=== PATIENT | female | born 1980 | race Caucasian/White ===

== ENCOUNTER 2016-09-28 03:20 | Emergency (ER) | payer SELFPAY ==
[2016-09-28] MEDS ORDERED: CIPROFLOXACIN/DEXAMETH OTIC 7.5ML BOTTLE ONE (03:39)
[2016-09-28] MEDS ORDERED: CIPROFLOXACIN/DEXAMETH OTIC 7.5ML BOTTLE LEFT_EAR ONE (03:40)
[2016-09-28] MEDS ORDERED: predniSONE 20 MG TAB PO ONE (03:41)
[2016-09-28 03:45] VITALS: BP 135/82; TEMP 97.5; O2SAT 98
--- NOTE | 2016-09-28 03:45 | ED.PDOC ---
History of Present Illness - General Chief Complaint: ENT Problem Stated Complaint: left ear pain Time Seen by Provider: 09/28/16 03:35 Source: patient Exam Limitations: no limitations - History of Present Illness Initial Comments: The patient is a 35-year-old female presenting to the emergency room secondary to left ear pain. She has been having some discomfort for the last week but it got significantly worse over the last 12 hours. The ear canal is slightly swollen shut. No significant drainage. No mastoid process tenderness to palpation. Timing/Duration: 1 week Severity: moderate Improving Factors: nothing Worsening Factors: nothing Associated Symptoms: denies symptoms Allergies/Adverse Reactions: Allergies NO KNOWN ALLERGY Allergy (Verified 03/25/12 15:11) Home Medications: Ambulatory Orders Ciprofloxacin-Dexamethasone [Ciprodex 0.3-0.1 %] 4 drop LEFT_EAR BID 7 Days 11/07 Review of Systems - Review of Systems Constitutional: States: no symptoms reported EENTM: States: see HPI Respiratory: States: no symptoms reported Cardiology: States: no symptoms reported Gastrointestinal/Abdominal: States: no symptoms reported Genitourinary: States: no symptoms reported Musculoskeletal: States: no symptoms reported Skin: States: no symptoms reported Neurological: States: no symptoms reported Endocrine: States: no symptoms reported All other Systems: No Change from Baseline Past Medical History (General) - Patient Medical History Hx Diabetes: No - Female History Hx Last Menstrual Period: 06/14/11 Expected Date of Delivery:: 03/20/12 Physical Exam - Physical Exam General Appearance: Alert, Comfortable, No apparent distress Eye Exam: bilateral normal Ears, Nose, Throat: hearing grossly normal, normal pharynx, other - left ear canal with significant swelling Neck: full range of motion, supple Respiratory: no respiratory distress, no accessory muscle use Cardiovascular/Chest: normal peripheral pulses, no edema Peripheral Pulses: dorsalis pedis,right: 2+, dorsalis pedis,left: 2+ Rectal Exam: deferred Back Exam: normal inspection Extremity: normal range of motion, normal inspection, no pedal edema, normal capillary refill 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 Ciprodex was started here. Will be continued for 7 days. ER warnings were given for any worsening. She needs to follow up with her primary care doctor. Departure - Departure Clinical Impression: Otitis externa Qualifiers: Otitis externa type: unspecified type Laterality: left Chronicity: acute Qualified Code(s): H60.502 - Unspecified acute noninfective otitis externa, left ear Disposition: Discharge to Home or Self Care Condition: Fair Departure Forms: ED Discharge - Pt. Copy, Patient Portal Self Enrollment Instructions: DI for Otitis Externa Diet: regular diet Activity: increase activity as tolerated Referrals: Ar Tellez MD [Primary Care Provider] - 1-2 Weeks Prescriptions: Ciprofloxacin-Dexamethasone [Ciprodex 0.3-0.1 %] 4 drop LEFT_EAR BID 7 Days Home Medications: Ambulatory Orders Ciprofloxacin-Dexamethasone [Ciprodex 0.3-0.1 %] 4 drop LEFT_EAR BID 7 Days 11/07 Additional Instructions: the patient is a 35-year-old female presenting with acute otitis externa on the left. Ciprodex was started here. Will be continued for 7 days. ER warnings were given for any worsening. She needs to follow up with her primary care doctor.
== END 2016-09-28 04:02 | disposition home or self-care (01) ==
LOC: ER 03:20
DX: H60.502 Unspecified acute noninfective otitis externa, left ear (principal)

== ENCOUNTER 2018-05-28 05:54 | Emergency (ER) | payer SELFPAY ==
[2018-05-28] MEDS ORDERED: KETOROLAC TROMETHAMINE INJ 30 MG/ML VIAL IM ONE (06:27)
[2018-05-28] MEDS ORDERED: MORPHINE SULFATE INJ 10 MG/ML VIAL IM ONE (06:27)
[2018-05-28] MEDS ORDERED: predniSONE 20 MG TAB PO ONE (06:28)
[2018-05-28] MEDS ORDERED: diazePAM 2 MG TAB PO ONE (06:28)
[2018-05-28 06:36] VITALS: TEMP 96.7
--- NOTE | 2018-05-28 06:44 | ED.PDOC ---
History of Present Illness - General Source: patient Exam Limitations: no limitations - History of Present Illness Initial Comments: The patient is a 37-year-old female presenting to emergency room secondary tosevere low back pain in the region of L4-S1 primarily on the left. Pain started low-grade yesterday became very severe when she dropped something and bent over to pick it up this morning. She has been unable to straighten herself since then. Pain is rated a 10 out of 10. The patient apparently has had a history of low magnesium in the past but has not had any checks. No known recent trauma to the back. The patient is obese. She does look unhealthy at this point. Timing/Duration: unsure Severity: severe Improving Factors: immobilization Worsening Factors: movement Associated Symptoms: denies symptoms <Ayush Oneill - Last Filed: 05/28/18 06:59> <Devin Hou - Last Filed: 05/28/18 10:29> - General Chief Complaint: Back Pain or Injury Stated Complaint: lower back [pain Time Seen by Provider: 05/28/18 06:24 - History of Present Illness Allergies/Adverse Reactions: Allergies NO KNOWN ALLERGY Allergy (Verified 05/28/18 06:30) Home Medications: Ambulatory Orders Ciprofloxacin-Dexamethasone [Ciprodex 0.3-0.1 %] 4 drop LEFT_EAR BID 7 Days brett 09/28/16 Acetamin W/Cod #3 Tab [Tylenol w/CODEINE #3] 1 ea PO Q6HR PRN #40 tab 05/28/18 Methocarbamol [Robaxin] 750 mg PO TID #30 tab 05/28/18 Methylprednisolone [Medrol Dose Kenneth] 4 mg PO DAILY 6 Days #21 tab 05/28/18 Review of Systems - Review of Systems Constitutional: States: no symptoms reported EENTM: States: no symptoms reported Respiratory: States: no symptoms reported Cardiology: States: no symptoms reported Gastrointestinal/Abdominal: States: no symptoms reported Genitourinary: States: no symptoms reported Musculoskeletal: States: back pain, muscle stiffness Skin: States: no symptoms reported Neurological: States: no symptoms reported Endocrine: States: no symptoms reported All other Systems: No Change from Baseline <Ayush Oneill - Last Filed: 05/28/18 06:59> Past Medical History (General) - Patient Medical History Hx Seizures: No Hx Stroke: No Hx Dementia: No Hx Asthma: No Hx of COPD: No Hx Cardiac Disorders: No Hx Congestive Heart Failure: No Hx Pacemaker: No Hx Hypertension: No Hx Thyroid Disease: No Hx Diabetes: No Hx Gastroesophageal Reflux: No Hx Renal Disease: No Hx Cancer: No Hx of HIV: No Hx Hepatitis C: No Hx MRSA: No Surgical History: tonsillectomy - Vaccination History Hx Tetanus, Diphtheria Vaccination: No Hx Influenza Vaccination: No - Social History Hx Tobacco Use: Yes Hx Alcohol Use: Yes - occasional - Female History Patient is a Female of Child Bearing Age (10 -59 yrs old): Yes Hx Last Menstrual Period: 06/14/11 Patient : No Expected Date of Delivery:: 03/20/12 <Ayush Oneill - Last Filed: 05/28/18 06:59> Family Medical History - Family History Mother Family History: Unknown Living Status: Unknown <Ayush Oneill - Last Filed: 05/28/18 06:59> Physical Exam - Physical Exam General Appearance: Alert, Obvious distress, Ill Appearing, Unkempt Eye Exam: bilateral normal Ears, Nose, Throat: hearing grossly normal, normal ENT inspection, normal pharynx Neck: full range of motion, supple Respiratory: lungs clear, normal breath sounds, no respiratory distress, no accessory muscle use Cardiovascular/Chest: normal peripheral pulses, regular rate, rhythm, no edema Peripheral Pulses: radial,right: 2+, radial,left: 2+, dorsalis pedis,right: 2+, dorsalis pedis,left: 2+ Gastrointestinal/Abdominal: non tender - obese, soft Rectal Exam: deferred Back Exam: no vertebral tenderness, muscle spasm, other - see history of present illness Extremity: non-tender, normal inspection, no pedal edema, no calf tenderness, normal capillary refill, other - testing of range of motion of lower extremities limited due to severe back pain at this point. 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 Skin Exam: other - skin color is fairly morgan Comments: Vital Signs - 24 hr 05/28/18 06:00 Temperature 96.7 F L Pulse Rate [ 72 monitor] Respiratory 20 Rate Blood Pressure 104/76 [Right Arm] O2 Sat by Pulse 99 Oximetry <Ayush Oneill - Last Filed: 05/28/18 06:59> Progress - Progress Progress: 05/28/18 06:46 the patient is a 37-year-old female presenting to emergency room secondary to gradual onset with abrupt worsening of low back pain primarily to the left lower back with severe muscle spasm starting a couple of days ago. The patient is receiving x-rays of this. she is also receiving a dose of Toradol, prednisone, low-dose Valium and a small dose of IM morphine to try and break the muscle spasm that is currently immobilizing her. This may simply be degenerative disease of the lower lumbar spine that has progressed due to increased weight bearing. However she does have a significant history of hypo magnesemia and given her current clinical appearance additional laboratory work has been order to help rule out other possibly contributing pathology. dr celaya to be assuming care and continue the workup. <Ayush Oneill - Last Filed: 05/28/18 06:59> - Results/Orders Results/Orders: Laboratory Tests 05/28/18 05/28/18 05/28/18 06:30 06:45 06:45 WBC 8.5 RBC 4.66 Hgb 14.4 Hct 42.7 MCV 91.6 MCH 30.8 MCHC 33.6 RDW 13.8 Plt Count 211 MPV 9.4 Absolute Neuts (auto) 5.90 Absolute Lymphs (auto) 2.10 Absolute Monos (auto) 0.40 Absolute Eos (auto) 0.10 Absolute Basos (auto) 0.00 Neutrophils % 69.6 Lymphocytes % 25.1 Monocytes % 4.2 Eosinophils % 1.0 Basophils % 0.1 Sodium 136 Potassium 4.3 Chloride 105 Carbon Dioxide 23 Anion Gap 12.3 BUN 10 Creatinine 0.74 BUN/Creatinine Ratio 13.5 Random Glucose 92 Serum Osmolality 270.6 L Calcium 9.2 Magnesium 1.8 Total Bilirubin 0.8 AST 16 ALT 12 Alkaline Phosphatase 28 L Creatine Kinase 65 CK-MB (CK-2) 1.4 CK-MB (CK-2) % 2.15 Troponin I < 0.02 Serum Total Protein 6.8 Albumin 3.9 Globulin 2.9 Albumin/Globulin Ratio 1.3 TSH 2.00 Serum HCG, Qual Negative Urine Color Urine Appearance Urine pH Ur Specific [place] Urine Protein Urine Glucose (UA) Urine Ketones Urine Blood Urine Nitrite Urine Bilirubin Urine Urobilinogen Ur Leukocyte Esterase Urine RBC Urine WBC Ur Epithelial Cells Amorphous Sediment Urine Bacteria 05/28/18 06:57 WBC RBC Hgb Hct MCV MCH MCHC RDW Plt Count MPV Absolute Neuts (auto) Absolute Lymphs (auto) Absolute Monos (auto) Absolute Eos (auto) Absolute Basos (auto) Neutrophils % Lymphocytes % Monocytes % Eosinophils % Basophils % Sodium Potassium Chloride Carbon Dioxide Anion Gap BUN Creatinine BUN/Creatinine Ratio Random Glucose Serum Osmolality Calcium Magnesium Total Bilirubin AST ALT Alkaline Phosphatase Creatine Kinase CK-MB (CK-2) CK-MB (CK-2) % Troponin I Serum Total Protein Albumin Globulin Albumin/Globulin Ratio TSH Serum HCG, Qual Urine Color Yellow Urine Appearance Cloudy Urine pH 6.5 Ur Specific [place] 1.025 Urine Protein Negative Urine Glucose (UA) Negative Urine Ketones Negative Urine Blood Negative Urine Nitrite Negative Urine Bilirubin Negative Urine Urobilinogen 0.2 Ur Leukocyte Esterase Negative Urine RBC 0 Urine WBC 0 Ur Epithelial Cells 1-3 Amorphous Sediment 2+ Urine Bacteria 0 7.10 AM PT EXAMINED STILL IN PAIN HISTORY REVIEWED EXAM IN MODERATE PAIN AT THIS TIME PAIN IS WORSE WITH MOVEMENTS SLR R 30 DEG LEFT 5 DEG KNEE REFLEX BILATERALLY EQUAL ANKLE IMPAIRED BILATERALLY SENSATION INTACT EXTENSOR HALLUCIS LONGUS WEAKER ON THE LEFT INDICATING POSSIBLE LOCATION OF HER PAIN IS FROM L4 5 DISC WILL OBTAIN A MRI TO DETEMINE THE NATURE AND SEVERITY OF THE DISC PROBLEM <Devin Hou - Last Filed: 05/28/18 10:29> Departure <Ayush Oneill - Last Filed: 05/28/18 06:59> - Departure Time of Disposition: 10:26 Diet: resume usual diet Activity: other - BED REST X 3 DAYS <Devin Hou - Last Filed: 05/28/18 10:29> - Departure Clinical Impression: Spasm of muscle of lower back Acute low back pain Qualifiers: Back pain laterality: left Sciatica presence: without sciatica Qualified Code(s): M54.5 - Low back pain Disposition: Discharge to Home or Self Care Condition: Fair Departure Forms: ED Discharge - Pt. Copy, Patient Portal Self Enrollment Instructions: DI for Low Back Pain, DI for Back Pain With Sciatica Referrals: Ar Tellez MD [Primary Care Provider] - 1-2 Weeks Prescriptions: Acetamin W/Cod #3 Tab [Tylenol w/CODEINE #3] 1 ea PO Q6HR PRN #40 tab PRN Reason: Mild To Moderate Pain Methocarbamol [Robaxin] 750 mg PO TID #30 tab Methylprednisolone [Medrol Dose Kenneth] 4 mg PO DAILY 6 Days #21 tab Home Medications: Ambulatory Orders Ciprofloxacin-Dexamethasone [Ciprodex 0.3-0.1 %] 4 drop LEFT_EAR BID 7 Days brett 09/28/16 Acetamin W/Cod #3 Tab [Tylenol w/CODEINE #3] 1 ea PO Q6HR PRN #40 tab 05/28/18 Methocarbamol [Robaxin] 750 mg PO TID #30 tab 05/28/18 Methylprednisolone [Medrol Dose Kenneth] 4 mg PO DAILY 6 Days #21 tab 05/28/18 Additional Instructions: IF PAIN PERSISTS RECOMMEND A MRI AND FOLLOW UP WITH A NEUROSURGEON Addendum entered and electronically signed by Ayush Oneill MD 05/28/18 06:59: Departure - Departure Clinical Impression: Spasm of muscle of lower back Acute low back pain Qualifiers: Back pain laterality: left Sciatica presence: without sciatica Qualified Code(s): M54.5 - Low back pain Disposition: Discharge to Home or Self Care Condition: Fair Departure Forms: ED Discharge - Pt. Copy, Patient Portal Self Enrollment Instructions: DI for Low Back Pain Referrals: Ar Tellez MD [Primary Care Provider] - 1-2 Weeks Home Medications: Ambulatory Orders Ciprofloxacin-Dexamethasone [Ciprodex 0.3-0.1 %] 4 drop LEFT_EAR BID 7 Days brett 09/28/16
[2018-05-28] MEDS ORDERED: methylPREDNISolone SODIUM SUC 125 MG/2 ML VIAL IV ONE (08:08)
[2018-05-28] MEDS ORDERED: fentaNYL CITRATE INJ 50 MCG/ML AMP IV ONE (08:10)
--- NOTE | 2018-05-28 08:11 | RAD ---
EXAM DESCRIPTION: Lumbar Spine 3 Views CLINICAL HISTORY: severe lbp 3 days COMPARISON: None FINDINGS: Frontal, lateral and coned-down lateral views of the lumbar spine were acquired. 5 lumbar type vertebral bodies are present. No significant levo dextrocurvature of the lumbar spine is present. SI joints and sacral struts are maintained. The lumbar lordosis is normal. There is increased sclerosis of the posterior elements of the L4-5 and L5-S1 levels indicating facet arthritis of an early nature. Associated spurring extending into the neural foramina at the L4-5 level. There is relative normal preservation of the disc heights with the exception of L5-S1 where there is complete disc height loss. No acute fractures are demonstrated. No aggressive bone lesions. Visualized hip joints are maintained. There is a calcified fibroid within the uterus. 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 If symptoms persist despite conservative management, consider noncontrast MRI for further evaluation. Electronically signed by: Masood Chairez MD 05/28/2018 8:07 AM [facility]
[2018-05-28] MEDS ORDERED: ORPHENADRINE CITRATE 30 MG/ML AMP IV ONE (09:14)
[2018-05-28 10:53] VITALS: BP 146/78; O2SAT 98
== END 2018-05-28 10:53 | disposition home or self-care (01) ==
LOC: ER 05:54
DX: M54.5 Low back pain (principal); M62.830 Muscle spasm of back; E66.9 Obesity, unspecified; Z87.891 Personal history of nicotine dependence
CPT/HCPCS: 36415; 72100; 80053; 81001; 82550; 82553; 83735; 84443; 84484; 84703; 85025; J1885; J2270; J2360; J2930; J3010; J7512